=== PATIENT | male | born 1985 | race Caucasian/White ===

== ENCOUNTER 2021-04-09 18:55 | Emergency (ER) | payer SELFPAY ==
[2021-04-09 18:57] VITALS: BP 132/72; PULSE 118; RESP 16; TEMP 37.2; O2SAT 95; BMI 25.0
--- NOTE | 2021-04-09 19:08 | XRR_ITS ---
PROCEDURE INFORMATION: Exam: XR Chest Exam date and time: 04/09/2021 7:17 PM Age: 35 years old Clinical indication: Cough and shortness of breath; Additional info: Cough, SOB TECHNIQUE: Imaging protocol: XR of the chest. Views: 1 view. COMPARISON: No relevant prior studies available. FINDINGS: Lungs: Prominent bronchovascular markings suggestive of bronchitis, negative for airspace infiltrate. Pleural spaces: Unremarkable. No pleural effusion. No pneumothorax. Heart/Mediastinum: Unremarkable. No cardiomegaly. Bones/joints: Unremarkable. XR/XR chest 1V portable [id number] IMPRESSION: Prominent bronchovascular markings suggestive of bronchitis, negative for airspace infiltrate.
--- NOTE | 2021-04-09 19:16 | ED_ITS ---
HPI - URI/Sore Throat General: Chief Complaint: Upper Respiratory Infection Stated Complaint: coughing, weazing, stuffy nose, body aches Time Seen by Provider: 04/09/21 19:08 Source: patient Mode of arrival: ambulatory Limitations: no limitations History of Present Illness: HPI Narrative: 35-year-old male states that over the last 10 days has been having nasal congestion with a postnasal drip along with a dry cough. States he has had a sore throat from his coughing as well. He states his cough is consistent. He denies any sick contacts he denies any production with his cough. He states he has had a subjective fever is felt hot at home but is afebrile here. Denies nausea vomiting. Denies any pain anywhere. Associated symptoms: Reports fever(s); Deny abdominal pain, chest pain, diarrhea, headache(s), nausea or vomiting Review of Systems Const: Reports: fever(s) Eyes: Denies: blurry vision or eye discomfort ENMT: Reports: post nasal drip Card: Denies: chest pain Resp: Reports: non-productive cough GI: Denies: abdominal pain, nausea, vomiting or diarrhea : Denies: dysuria Musc: Denies: neck pain or back pain Skin/Breast: Denies: rash Neuro: Denies: headache(s) Psych: Denies: depression Pavel/Lymph: Denies: easy bruising All/Imm: Denies: urticaria Physical Exam Const: COMMON NORMALS: no acute distress, patient oriented x3 and healthy appearing HENMT: COMMON NORMALS: normocephalic and atraumatic HEAD & SCALP: normocephalic and atraumatic Eye: COMMON NORMALS: Equal, round and reactive pupils present and EOMs intact bilaterally PUPIL: Yes Equal, round and reactive pupils present Neck/C-Spine: COMMON NORMALS: full ROM and supple Chest: COMMONS NORMALS: normal inspection of the chest and normal palpation of entire chest wall Resp: COMMON NORMALS: normal respiratory effort, No retractions, No use of accessory muscles and clear to auscultation bilaterally AUSCULTATION: clear to auscultation bilaterally Cardio: COMMON NORMALS: regular rhythm and No murmurs present (Cardio) RATE: tachycardic RHYTHM: regular rhythm GI: COMMON NORMALS: Normal to inspection, nondistended, normoactive bowel sounds present, Soft to palpation, non-tender and no masses PALPATION: Yes Soft to palpation Extremity: COMMON NORMALS: normal to inspection and full ROM Neuro: COMMON NORMALS: patient oriented x3, moves all extremities and no focal motor deficits Psych: COMMON NORMALS: mental status grossly normal, Normal thought process present and cooperative THOUGHT PROCESS: Normal thought process present Skin: COMMON NORMALS: no rashes or lesions noted and no wounds GENERAL SKIN EXAM: no rashes or lesions noted Course Vital Signs: Vital signs: Vital Signs Temperature 99.0 F 04/09/21 18:57 Pulse Rate 127 H 04/09/21 19:31 Respiratory Rate 24 H 04/09/21 19:30 Blood Pressure 138/82 04/09/21 19:21 Pulse Oximetry 99 04/09/21 19:30 MDM - URI/Sore Throat MDM Narrative: Medical decision making narrative: Patient presents here with left wrist for infection. Patient is well-appearing here and in no distress. At discharge his heart rate is improved and is now 105. He has no signs of pneumonia and his Covid is negative. He is stable for discharge will place on azithromycin he was given a Decadron shot here and will have him use an albuterol inhaler. I did counselor at law him on smoking cessation. He is to follow-up PCP in 2 to 4 days return to ER if worsening. He understands agrees plan. He has no signs of pulmonary [place]. Lab Data: Labs: Lab Results 04/09/21 Range/Units 19:16 SARS-CoV-2 Ag (Rap id) Negative (Negative) Imaging Data^: CXR: Attestation: I personally reviewed and interpreted this imaging study as follows: My impression: no acute abnormality Discharge Plan Discharge Patient Disposition: Home Clinical Impression: Upper respiratory infection Qualifiers: URI type: unspecified URI Qualified Code(s): J06.9 - Acute upper respiratory infection, unspecified Condition: Stable Prescriptions: New azithromycin 250 mg tablet See Rx Instructions .ROUTE .COMPLEX Qty: 6 RF: 0 albuterol sulfate 90 mcg/actuation HFA aerosol inhaler 2 inh INHALATION Q6H PRN (Reason: shortness of breath or wheezing) Qty: 8 RF: 0 Discharge Orders: Discharge ED (Routine); Ordered 04/09/21 Ordered By: Martha Blackburn Discharge Diet: Advance as tolerated Discharge Activity: Resume usual activity Patient Instructions: Upper Respiratory Infection (ED) Coding Level of Care Code ED Superintendent Storage Area for [facility] [place] Exam Comprehensive
[2021-04-09] MEDS: dexamethasone 10 mg/mL INJ IM (19:19)
[2021-04-09] MEDS: ibuprofen 800 mg tablet PO (19:20)
[2021-04-09 19:21] VITALS: BP 138/82; PULSE 121; RESP 19; O2SAT 99
[2021-04-09] MEDS: albuterol 8 gm MDI 2 PUFF INHALATION (19:29)
[2021-04-09 19:30] VITALS: PULSE 127; RESP 24; O2SAT 99
[2021-04-09 19:31] VITALS: PULSE 127
[2021-04-09 19:41] LABS: SARS Covid-2 Antigen Negative (Negative)
[2021-04-09 19:55] VITALS: BP 99/81; PULSE 118; RESP 18; O2SAT 98
== END 2021-04-09 19:56 | disposition home or self-care (01) ==
PROVIDERS: Emergency Provider Emergency Medicine
DX: J06.9 Acute upper respiratory infection, unspecified (principal)
CPT/HCPCS: 71045; 87426; 94640; 96372; 99283; J1100; J3535